=== PATIENT | female | born 1985 | race African-American/Black ===

== ENCOUNTER 2019-06-26 00:04 | Emergency (ER) | payer SELFPAY ==
[~2019-06-26] VITALS: Ht 175.3 cm; Wt 83.9 kg
[2019-06-26 00:09] VITALS: Ht 175.3 cm; Wt 83.9 kg
[2019-06-26 01:58] VITALS: BP 114/76
== END 2019-06-26 01:58 | disposition home or self-care (01) ==
LOC: ED 00:04
DX: S01.511A Laceration without foreign body of lip, initial encounter (principal); W18.09XA Striking against other object with subsequent fall, initial encounter; Y93.51 Activity, roller skating (inline) and skateboarding; Y92.331 Roller skating rink as the place of occurrence of the external cause; Y99.8 Other external cause status